=== PATIENT | female | born 1950 | race Caucasian/White ===

== ENCOUNTER 2016-10-13 07:32 | Day surgery (SDC) | payer MEDICARE, BC ==
[~2016-10-13 07:32] MED LIST: RINGERS SOLUTION,LACTATED 1,000 ML IV PRN
--- OUTSIDE RECORDS SUMMARY | 2016-10-13 07:36 | XMS REPORT | Continuity of Care Document ---
:1950 Author Organization [facility] ([facility]) Address [address] [place] [address] Phone [phone] Care Team Providers Name Role Phone Star Alba Primary Care Provider [phone] Source Comments This disclosure is being made pursuant to the Care Everywhere program, applicable federal and state laws, and may not contain all informaitonavailable regarding this patient.[facility] ([facility]) Active Allergies and Adverse Reactions Allergen Noted Date Severity Reactions Comments Ciprofloxacin 01/22/2015 Rash Codeine 01/22/2015 Rash Current Medications Prescription Sig. Disp. Refills Start Date End Date Status CLONAZEPAM 1 mg tablet 11/13/2014 Active cyanocobalamin (VITAMIN Take 500 mcg by Active B-12) 500 mcg tablet mouth daily cholecalciferol (VITAMIN Take 1,000 Units Active D3) 1,000 unit tablet by mouth daily Take 2 tabs daily clopidogrel 75 mg tablet Take 75 mg by 12/22/2015 Active mouth daily. omeprazole 20 mg enteric Take 20 mg by 02/25/2016 Active coated capsule mouth 2 times daily. pramipexole 1.5 mg 02/15/2016 Active tablet losartan 25 mg tablet Take 0.5 tablets 30 tablet 6 03/03/2016 Active (12.5 mg total) by mouth daily. CALCIUM CARBONATE Take 600 mg by Active (CALCIUM 600 PO) mouth 2 times daily. ferrous sulfate 325 mg Take 325 mg by Active (65 mg iron) tablet mouth daily. KLOR-CON M20 20 mEq 08/27/2016 Active tablet pravastatin 20 mg tablet Take 1 tablet 90 tablet 3 09/01/2016 Active (20 mg total) by mouth every evening. Active Problems Problem Noted Date Left ventricular systolic dysfunction 01/22/2015 Overview: Resolved per echo 05.08.2013 Dyslipidemia 01/22/2015 Restless leg syndrome 01/22/2015 Overview: folllowed by Dr. Garrison at [facility] on CPAP 01/22/2015 Overview: Followed by Dr. Garrison, Neurology, [facility] Most Recent Encounters Date Type Specialty Providers Description 09/21/2016 Telephone [facility], Chief Comp: Medication DO Question 09/01/2016 Office Visit [facility], Dx: Transient ischemic DO attack (TIA), and cerebral infarction without residual deficits (Primary Dx) Social History Tobacco Use Types Packs/Day Years Used Date Never Smoker Last Filed Vital Signs Vital Sign Reading Time Taken Blood Pressure 154/80 09/01/2016 9:19 AM BILLET CHECKER Pulse 72 09/01/2016 9:19 AM BILLET CHECKER Temperature - - Respiratory Rate - - Height 1.626 m (5' 4") 09/01/2016 9:19 AM BILLET CHECKER Weight 77.565 kg (171 lb) 09/01/2016 9:19 AM BILLET CHECKER Body Mass Index 29.34 09/01/2016 9:19 AM BILLET CHECKER Oxygen Saturation - - Plan of Care Date Type Specialty Providers Description 09/14/2017 Appointment [facility], Chief Comp: Patient DO Reported Reason For [address] Visit [place] [phone] (Fax) Health Maintenance Due Date Last Done Comments HCV Screening 1950 Hepatitis B Vaccine (1 of 3 - Primary Series) 1950 Tdap Vaccine 1960 Lipid Disorder Screening 1967 Td Vaccine 1967 Mammogram 1989 Colonoscopy 1999 Zoster Vaccine 2009 Osteoporosis Screening (DXA Bone Density) 2014 Pneumococcal Vaccine (1 of 2 - PCV13) 2014 Influenza Vaccine: Seasonal (#1) 03/22/2016 Results from Last 3 Months Not on file
[2016-10-13] MEDS ORDERED: RINGERS SOLUTION,LACTATED 1,000 ML IV ONE (08:25)
[2016-10-13 11:50] VITALS: BP 116/54
--- NOTE | 2016-10-13 14:04 | OR ---
Operative Report - Dictated Report Narrative: OPERATIVE REPORT DATE OF OPERATION: 10/13/2016 PREOPERATIVE DIAGNOSIS: No recent dedicated colon studies POSTOPERATIVE DIAGNOSIS: Normal colonoscopy OPERATION: Colonoscopy SURGEON: Pina Millard MD ANESTHESIA: ALFA Anglin CRNA INDICATIONS FOR PROCEDURE: The patient is a 66-year-old female referred by Dr. Alba. She has had previous normal colonoscopies in 2001 in 2005. There is no family history of colon cancer. The patient is currently asymptomatic. FINDINGS: Somewhat capacious colon with mild melanosis otherwise normal colonoscopy to the cecum. NARRATIVE OF PROCEDURE: The patient was identified in the holding area, and prior to the administration of anesthetic, a multidisciplinary timeout was observed. With the patient in the left lateral position and after the administration of intravenous sedation, the perineum was inspected. There was no evidence of pilonidal disease or skin breakdown. The external appearance of the anus was normal. Sphincter tone was good. The flexible fiberoptic colonoscope was inserted into the rectum which was insufflated with air. The rectal mucosa and submucosal vascular pattern appeared normal, the prep was seen to be complete. The scope was advanced through the sigmoid colon, up the descending colon, and around the splenic flexure where the triangular haustral architecture of the transverse colon was seen. The scope was advanced across the transverse colon, around the hepatic flexure to the cecum, where the confluence of tenia and the ileocecal valve were identified. The mucosa at this level appeared normal. The scope was then slowly withdrawn in a circular fashion so that all aspects of colonic mucosa were inspected. The colon was capacious in character and redundant and course. The haustral architecture appeared well preserved throughout with no evidence of external compression. There was a suggestion of mild melanosis however otherwise the mucosa and submucosal vascular pattern appeared normal, specifically there was no gross evidence to suggest colitis or inflammatory bowel disease and no AV malformations were seen. No diverticulosis was demonstrated. No polyps were encountered. The scope was gradually withdrawn to the level of the rectum. As much insufflated air as possible was removed. The scope was withdrawn from the patient and the procedure terminated. The patient tolerated the anesthetic and procedure well without complication and was transferred back to the ambulatory surgery area awake and in stable condition. The patient remained stable throughout a period of postoperative observation. She denied abdominal discomfort, was able to tolerate by mouth intake, and was up without assistance. I shared the operative findings with the patient and she was given copies of the photographs which appear in the medical record. She was discharged home with instructions not to engage in hazardous activity today , but may resume normal activity tomorrow, and advance diet as tolerated. She is to continue those medications as listed in the history and physical exam. RECOMMENDATION: Colonoscopy in 10 years depending upon findings and symptoms Reviewed and electronically signed
== END 2016-10-13 07:33 | disposition home or self-care (01) ==
LOC: SUR 07:32
PROVIDERS: ATTEND Surgery
PROC: 0DJD8ZZ Inspection of Lower Intestinal Tract, Via Natural or Artificial Opening Endoscopic (ICD-10-PCS; principal; 2016-10-13 09:00)
DX: Z12.11 Encounter for screening for malignant neoplasm of colon (principal); I11.0 Hypertensive heart disease with heart failure; I50.22 Chronic systolic (congestive) heart failure; E78.5 Hyperlipidemia, unspecified; G25.81 Restless legs syndrome; Z68.29 Body mass index [BMI] 29.0-29.9, adult